=== PATIENT | female | born 1980 | race Caucasian/White ===

== ENCOUNTER 2025-02-15 13:53 | Inpatient (IN) | payer OTHER ==
[~2025-02-15] VITALS: Ht 172.7 cm; Wt 77.3 kg
--- NOTE | 2025-02-15 14:36 | Physician Documentation ---
History of Present Illness ~ Chief Complaint: Post-operative complication Stated Complaint: POST OP COMPLICATIONS OK to notify your PCP?: Yes Source: patient Mode of Arrival: POV Exam Limitations: no limitations HPI 44-year-old female who has been having increased fatigue and weakness and cold chills which started last night. She had a hernia repair surgery done at [place] 13 days ago and has to drains placed. The drain on the left side has been producing an abnormal color according to her. She was not discharged on any antibiotics. Medication Reconciliation Allergies: Coded Allergies: morphine (Verified Allergy, Unknown, ITCHINESS AND PT FEEL HOT, 02/15/25) Review of Systems All Other Systems at this time: Reviewed and Negative Physical Exam Vital Signs: RN Vital Signs have been reviewed: Yes, Temperature: 99.0, Source: Oral, Heart Rate: 102, Respiratory Rate: 18, BP: 123/63, Pulse Oximetry: 99, Weight: 77.270 Oxygen Flow Rate: 0 Pulse Oximetry Reflects: adequate oxygenation Physical Exam General: Alert, no distress. HEENT: No injection, moist mucous membranes. Neck: Full range of motion. Respiratory: No respiratory distress, equal chest rise and fall. Chest: No accessory muscle use. Cardiovascular: Regular rate and rhythm. Gastrointestinal: Nondistended. Bilateral drains from abdomen. Erythema at drain site on left side, Extremities: Normal range of motion, no deformity. Neurologic: Oriented x4. Psychiatric: Normal mood and affect. Skin: Normal color, warm and dry. Progress Results/Orders Results/Orders Orders - KATIE MALAVE PATIENT EDUCATOR Cbc/Diff (02/15/25 14:28) Culture Blood (02/15/25 14:28) Urinalysis, Cult If Indicated (02/15/25 14:28) Chest,Single View (02/15/25 14:28) Monitor (02/15/25 14:28) Oxygen (02/15/25 14:28) Saline Lock (02/15/25 14:28) Procalcitonin (02/15/25 14:28) BMP (02/15/25 14:28) Lacticsepsis (02/15/25 14:28) Vital Signs 02/15/25 14:22 Temp 99.0 Pulse 102 Resp 18 B/P (MAP) 123/63 Pulse Ox 99 O2 Flow Rate 0 Departure Referrals: NO PRIMARY CARE PROVIDER (PCP) Additional Comment Medical Screen Exam This patient recieved a medical screening examination. After reviewing the individual's medical complaints with presenting symptoms and performing an appropriate physical examination, it was determined that no immediate life- threatening emergency medical condition is present. This individual is also not a women having contractions. KATIE MALAVE [facility] Feb 15, 2025 14:36
--- NOTE | 2025-02-15 14:52 | RADIOLOGY REPORT ---
CHEST RADIOGRAPH Indication: RECENT SURGERY Technique: Single frontal view of the chest was obtained Comparison: None FINDINGS: Lines and Tubes: None Lungs: No focal consolidation. Pleura: No effusion. No pneumothorax. Cardiomediastinal contours: Unremarkable Bones: No acute osseous abnormality. IMPRESSION: No acute cardiopulmonary disease.
--- NOTE | 2025-02-15 15:06 | Physician Documentation ---
History of Present Illness General Chief Complaint: Post-operative complication Stated Complaint: POST OP COMPLICATIONS Time Seen by MD: 14:48 Source: patient Mode of Arrival: POV Exam Limitations: no limitations History of Present Illness Initial Comments The patient is a 44-year-old female from [place] who presents with postop wound infection. She underwent a sigmoid colectomy in 2020 after prolonged chronic diverticulitis. On 02/02/2025, 13 days ago, she underwent a surgical hernia repair at [place] and had bilateral drains placed. She came to [place] about a week ago on vacation. Last night beginning around 8:00 p.m. she experienced chills and pain at the site of the drains. She is slated to return to [place] tomorrow and scheduled for removal of the drains on February 19, back at [place]. Medication Reconciliation Allergies: Coded Allergies: morphine (Verified Allergy, Unknown, ITCHINESS AND PT FEEL HOT, 02/15/25) Scheduled Aripiprazole (Aripiprazole), 1 TAB PO DAILY, (Reported) Baclofen (Baclofen), 1 TAB PO DAILY, (Reported) Escitalopram Oxalate (Escitalopram Oxalate), 1 TAB PO DAILY, (Reported) Fexofenadine Hcl* (Ada*), 1 TAB PO BID, (Reported) Gabapentin (Gabapentin), 1 TAB PO TID, (Reported) Gabapentin (Gabapentin ER), 1 TAB PO DAILY, (Reported) Metoprolol Tartrate (Metoprolol Tartrate), 1 TAB PO BID, (Reported) Montelukast Sodium (Montelukast Sodium), 1 TAB PO DAILY, (Reported) Omeprazole (Prilosec), 1 CAP PO BID, (Reported) Pramipexole Di-Hcl (Pramipexole Dihydrochloride), 1 TAB PO HS, (Reported) Topiramate (Topiramate), 1 TAB PO DAILY, (Reported) Topiramate (Topamax), 1 TAB PO BID, (Reported) Scheduled PRN Hydrocodone Bit/Acetaminophen (Hydrocodon-Acetaminophen 5-325), 1 TAB PO Q4H PRN for pain, (Reported) Promethazine Hcl (Phenergan), 0.5 TAB PO DAILY PRN for nausea, (Reported) Trazodone HCl (Trazodone HCl), 4 TAB PO HS PRN for insomnia, (Reported) Review of Systems ROS Constitutional: Patient complains of chills and fatigue HEENT: Denies hearing loss, sinus pressure or visual changes. Respiratory: Denies cough, shortness of breath or wheezing. Cardiovascular: Denies chest pain, pain while walking (claudication), edema or palpitations. Gastrointestinal: Lower abdominal pain and pain at the site of the drains b ilaterally Genitourinary: Denies painful urination (dysuria), excessive amount of urine (polyuria) or urinary frequency. Metabolic/Endocrine: Denies cold intolerance, heat intolerance, excessive thirst (polydipsia) or excessive hunger (polyphagia). Neurological: Denies dizziness, extremity numbness, extremity weakness, headaches, seizures or tremors. Psychiatric: Denies anxiety or depression. Integumentary: Denies breast discharge, breast lump, hives, mole change(s), rash or skin lesion. Musculoskeletal: Denies back pain, joint pain, joint swelling or neck pain. Hematologic: Denies easily bleeding, easily bruises, lymphedema or issues with blood clots. Immunologic: Denies food allergies or seasonal allergies. Physical Exam Physical Exam Vital Signs: Temperature: 99.0, Source: Oral, Heart Rate: 102, Respiratory Rate: 18, BP: 123/63, Pulse Oximetry: 99, Weight: 77.270 Oxygen Flow Rate: 0 General Appearance Physical Exam Vitals and nursing note reviewed. Constitutional: General: Patient is awake, alert, oriented x 4 in no acute distress and well appearing. Speech is clear and lucid. Appearance: Normal appearance. Patient is not ill-appearing, toxic-appearing or diaphoretic. HENT: Head: Normocephalic and atraumatic. Mouth/Throat: Mouth: Mucous membranes are moist. Pharynx: Oropharynx is clear. Eyes: General: No scleral icterus. Extraocular Movements: Extraocular movements intact. Pupils: Pupils are equal, round, and reactive to light. Cardiovascular: Rate and Rhythm: Normal rate and regular rhythm. Heart sounds: No murmur heard. Pulmonary: Effort: No respiratory distress. Breath sounds: No wheezing, rhonchi or rales. Abdominal: General: There is no distension. Palpations: There is no fluid wave, hepatomegaly or mass. Tenderness: Urea bilateral lower abdominal drains with erythema at their entry points. The fluid accumulated within the drains appears reddish and cloudy. Musculoskeletal: General: No swelling or deformity. Skin: Coloration: Skin is not jaundiced. Findings: No erythema or rash. Neurological: Mental Status: Patient is alert. Progress Results/Orders Results/Orders Orders - FARNAZ MASTERS MD Ct Abdomen Pelvis (02/15/25 14:58) Hcg, Ur Ql (02/15/25 17:36) Ultrasound Pelvis W/Orwo Dplx (02/15/25 ) Completed Orders - FARNAZ MASTERS MD Ct Abdomen Pelvis (02/15/25 14:58) Normal Saline 1000ml (Sodium Chloride 10 (02/15/25 16:05) Vancomycin*Pharmacy To Dose* (Vancomycin (02/15/25 16:05) Piperacillin/Tazo 3.375gm/50ml (Zosyn 3. (02/16/25 00:00) Iohexol 300mg/Ml 100ml Inj. (Omnipaque-3 (02/15/25 16:52) Piperacillin/Tazo 3.375gm/50ml (Zosyn 3. (02/15/25 17:28) Ultrasound Pelvis W/Orwo Dplx (02/15/25 ) Vital Signs 02/15/25 02/15/25 02/15/25 02/15/25 14:22 14:55 17:41 19:22 Temp 99.0 98.9 Pulse 102 113 107 Resp 18 14 18 19 B/P (MAP) 123/63 110/70 (83) 114/62 (79) Pulse Ox 99 98 98 O2 Flow Rate 0 0 02/15/25 21:15 Temp 98.9 Pulse 99 Resp 18 B/P (MAP) 117/65 (82) Pulse Ox 98 Laboratory Tests Test 02/15/25 15:35 02/15/25 16:45 White Blood Count 15.7 H Red Blood Count 3.50 L Hemoglobin 9.7 L Hematocrit 29.7 L Mean Corpuscular Volume 84.9 Mean Corpuscular Hemoglobin 27.7 Mean Corpuscular Hemoglobin Concent 32.6 L Red Cell Distribution Width 15.4 H Platelet Count 384 Mean Platelet Volume 7.0 L Neutrophils (%) (Auto) 88.3 H Lymphocytes (%) (Auto) 7.2 L Monocytes (%) (Auto) 3.8 Eosinophils (%) (Auto) 0.3 Basophils (%) (Auto) 0.4 Neutrophils # (Auto) 13.9 H Lymphocytes # (Auto) 1.1 Monocytes # (Auto) 0.6 Eosinophils # (Auto) 0.0 Basophils # (Auto) 0.1 CBC Comment Sodium Level 138 Potassium Level 3.6 Chloride Level 105 Carbon Dioxide Level 25.1 Anion Gap 8 Blood Urea Nitrogen 6 L Creatinine 0.83 Estimated GFR/1.73 m2 74 BUN/Creatinine Ratio 7.2 L Glucose Level 98 Lactic Acid Level 0.9 Calcium Level 8.0 L Albumin 3.0 L Procalcitonin < 0.05 Chemistry Comments Urine Specimen Description Cln catch midstream Urine Color Yellow Urine Clarity Clear Urine pH 7.0 Urine Specific [place] <=1.005 Urine Protein Negative Urine Glucose (UA) Negative Urine Ketones Negative Urine Occult Blood Negative Urine Nitrite Negative Urine Bilirubin Negative Urine Urobilinogen 0.2 Urine Leukocyte Esterase Negative Urine Culture Indicated Not ind Volume Urine Centrifuged 10 ml Urine Comment Medical Decision Making Findings This 44-year-old lady presents with chills that began last night around 8:00 p.m. after having had a herniorrhaphy at [place] with bilateral drains placed. CT scan shows a 3 cm complex cyst in the right ovary with recommendation to obtain pelvic ultrasound, which I have ordered. [place] [id number]. I am transferring care S6 p.m. to Dr. Youngblood Departure Disposition: ADMITTED INPATIENT Admitted to Inpatient Unit: to hospitalist Impression: Primary Impression: Postoperative wound infection Condition: Stable Referrals: NO PRIMARY CARE PROVIDER (PCP) Signature Scribe Signature: . Attestation: FARNAZ SMILEY MD Feb 15, 2025 15:06
[2025-02-15 15:47] LABS: BASOPHILS # (AUTO) 0.1 X10'3 (0-0.2); BASOPHILS % (AUTO) 0.4 % (0-1); EOSINOPHILS % (AUTO) 0.3 % (0-6); HEMATOCRIT 29.7 % (35.0-45.0); HEMOGLOBIN 9.7 g/dl (12.0-16.0); LYMPHOCYTES # (AUTO) 1.1 X10'3 (1.1-4.8); LYMPHOCYTES % (AUTO) 7.2 % (21-51); MEAN CORPUSCULAR HEMOGLOBIN 27.7 PG (27.0-31.0); MEAN CORPUSCULAR HGB CONC 32.6 g/dL (33.0-36.5); MEAN CORPUSCULAR VOLUME 84.9 FL (78-98); MONOCYTES # (AUTO) 0.6 X10'3 (0-0.9); MONOCYTES % (AUTO) 3.8 % (2-12); NEUTROPHILS # (AUTO) 13.9 X10'3 (1.8-7.7); NEUTROPHILS % (AUTO) 88.3 % (42-75); PLATELET COUNT 384 X10'3 (140-440); RED CELL DISTRIBUTION WIDTH 15.4 % (11.5-14.5); WHITE BLOOD COUNT 15.7 X10'3 (4.5-11.0)
[2025-02-15 15:55] LABS: ANION GAP 8 (8-16); BLOOD UREA NITROGEN 6 MG/DL (7-18); BUN/CREATININE RATIO 7.2 (10.0-20.0); CHLORIDE 105 MMOL/L (99-107); CREATININE 0.83 MG/DL (0.40-0.90); GLUCOSE 98 MG/DL (70-104); POTASSIUM 3.6 MMOL/L (3.5-5.1); SODIUM 138 MMOL/L (135-145); TOTAL CARBON DIOXIDE 25.1 MMOL/L (24-32); eCRCL 86 ML/MIN; eGFR 74 ML/MIN
[2025-02-15] MEDS ORDERED: iohexol 300mg/ml 100ml inj. ONE (16:52)
[2025-02-15 16:54] LABS: BILIRUBIN,URINE NEGATIVE (Neg); CLARITY,URINE CLEAR (Clear); COLOR,URINE YELLOW (Yellow); GLUCOSE, URINE NEGATIVE (Neg); KETONES,URINE NEGATIVE (Neg); LEUKOCYTE ESTERASE ,URINE NEGATIVE (Neg); NITRITES, URINE NEGATIVE (Neg); OCCULT BLOOD,URINE NEGATIVE (Neg); PROTEIN,URINE NEGATIVE (Neg); UROBILINOGEN,URINE 0.2 E.U/dL (0.2-1.0)
[2025-02-15 17:00] LABS: UA COLLECTION TYPE CLN CATCH MIDSTREAM
[2025-02-15] MEDS: normal saline 1000ml 1,000 ML IV ONE (17:12)
--- NOTE | 2025-02-15 17:22 | RADIOLOGY REPORT ---
Indication: Post-op infection Technique: CT axial images of the abdomen and pelvis are obtained with intravenous contrast. Coronal and sagittal reformats were obtained. Radiation Dose Information: CTDI volume is 24.4 mGy. Dose-length product is 1181 mGy*cm Comparison: None FINDINGS: Lung bases demonstrate no pleural effusion. Adrenal m glands unremarkable. Splenic hypodense lesion measuring 8 mm. Pancreas unremarkable. Chol ecystectomy. The right hepatic dome is incompletely characterized on this examination. Subcentimeter hepatic hypodensities, too small to characterize statistically likely representing cysts. Hepatomegal y. Kidneys demonstrate no hydronephrosis. 1 cm left renal cyst. 1.3 cm right renal cyst. Other smaller bilateral renal cysts. Stomach is poorly distended. Small bowel loops are normal in caliber. Postsurgical changes of the sigmoid colon. Colonic diverticular disease. Normal appendix. The abdominal aorta is normal in caliber. Bladder partially distended. Complex right ovarian cystic lesion measuring 3.1 cm. Right abdominal approach drainage catheter which is terminating along the re ctus abdominus. There is a 2nd left abdominal approach drainage catheter terminating within the ante rior abdominal tissues. There is soft tissue edema and stranding. No loculated collection present. Bladder distended. No free pelvic fluid. No inguinal lymphadenopathy. [id number] thoracolumbar degenerative disc disease. Mild thoracolumbar dextrocurvature. IMPRESSION: Abdominal drainage catheters as described. There is anterior abdominal subcutaneous/soft tissue edema and stranding but no loculated collection identified. Cholecystectomy. Complex right ovarian cystic lesion measuring 3.1 cm. Recommend ultrasound pelvis Please note the right hepatic dome is not completely characterized on this examination. Splenic hypodense lesion measuring 8 mm, likely cyst. This can be further characterized on multiphas ic MRI abdomen with and without contrast in the nonemergent setting. Postsurgical changes of the sigmoid colon. Other findings as described
[2025-02-15] MEDS: VANCOmycin 1250MG/NS 250ml Bag 250 ML IV SCH (17:44)
[2025-02-15] MEDS: piperacillin/tazo 3.375gm/50ml 50 ML IV SCH (20:29)
--- NOTE | 2025-02-15 21:02 | RADIOLOGY REPORT ---
Procedure: US ULTRASOUND PELVIS W/ORWO DPLX [facility] Study Date and Requested Time: 02/15/2025 08:01 PM Study Description: US ULTRASOUND PELVIS W/ORWO DPLX History: Complex right ovarian cyst, requested by radiologist Comparison: CT abdomen and pelvis 02/15/2025 Technique: Multiple transabdominal and transvaginal high resolution zhao-scale images obtained of the uterus and adnexa with color Doppler for evaluation of adnexal blood flow and vascularity as indicat ed. Findings: Uterus measures 7.2 x 4.2 x 4.2 cm, with homogeneous echotexture. Endometrium within normal limits, m easuring 0.3 cm in thickness with smooth contour. Cervix within normal limits. Right ovary measures 3.8 x 2.8 x 3.3 cm with a 1.8 x 1.8 x 1.8 cm cyst /dominant follicle and 1.1 x 1 .2 x 1.4 cm cyst/ dominant follicle. Left ovary measures 2.9 x 2.9 x 2.5 cm cm. Normal ovarian color Doppler flow bilaterally. No evidence of free fluid in the cul-de-sac. Impression: 1.8 cm and 1.4 cm right ovarian cyst/dominant follicles. No additional significant findings are noted.
[2025-02-15] MEDS ORDERED: magnesium sulf-water 4G/100mL 100 ML IV PRN (23:50)
[2025-02-15] MEDS ORDERED: magnesium sulf-water 2g/50mL 50 ML IV PRN (23:50)
[2025-02-15] MEDS ORDERED: potassium Cl 20 mEq SR tablet PO PRN (23:50)
[2025-02-15] MEDS ORDERED: mag hydrox/Alum hydrox/simeth 30ml oral suspension PO PRN (23:50)
[2025-02-15] MEDS ORDERED: magnesium hydroxide 30ml (MOM) UD suspension PO PRN (23:50)
[2025-02-15] MEDS ORDERED: magnesium Cl slow-release 64mg tablet PO PRN (23:50)
[2025-02-15] MEDS ORDERED: potassium Cl 40MEQ/1/2NS 520ml 520 ML IV PRN (23:50)
[2025-02-15] MEDS ORDERED: acetaminophen 325mg tablet PO PRN (23:50)
[2025-02-16] MEDS ORDERED: piperacillin/tazo 3.375gm/50ml 50 ML IV SCH
--- NOTE | 2025-02-16 00:02 | HISTORY AND PHYSICAL-Residence ---
History & Physical Providers to CC Resident Creating Document: CIRILO TYLER, RES CC: MIRNA FUCHS MD ~ History of Present Illness Reason for Admit\Complaint: Heaviness in the drains post surgery History of Present Illness A 44-year-old female with past medical history bipolar, depression presented to the ED as she started feeling heaviness in her drains with the associated chills but no fever which is questionable as the patient did not have vomitings to check her temperature. Patient usually lives in [place] underwent hernia surgery with [place] on 02/02/2025 and came here for a vacation when she started experienced symptoms. Patient also complains of aching in her legs. 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 Krissy Smiley at [facility] for primarycare ROS ROS All other systems reviewed in full and negative except for the pertinent positives mentioned in the HPI Exam Vitals: Vital Signs Date Time Temp Pulse Resp B/P (MAP) Pulse Ox O2 Delivery O2 Flow Rate FiO2 02/15/25 19:22 98.9 107 19 114/62 (79) 98 02/15/25 17:41 0 General: General: Alert, awake, oriented, not in acute distress HEENT: PERRLA, no icterus, pallor, lymphadenopathy, carotid bruit Respiratory system: Bilateral vesicular breath sounds heard, no adventitious breath sounds CVS: S1-S2 heard, no murmurs/rubs/gallop GI: Tender with bilateral drains which is erythematous at the insertion site, a well-healing linear surgical scar from the surgery, Soft, , no organomegaly, no guarding/rigidity, bowel sounds present Neuro: No focal neurological deficits present Extremities: No edema cyanosis clubbing/deformities Skin: Warm and dry Diagnostic Data Last Recorded Lab Results: 02/15/25 1535 02/15/25 1535 Advance Care Planning Advanced Care plannin - 30 Minutes (I spent 20 minutes discussing various resuscitative measures and the patient decided to be full code) Additional Plan Assessment: A 44-year-old female with a past medical history of bipolar and depression presented to the ED with heaviness in her drains post surgery of her hernia repair on 02 February 2025. Patient is admitted for the evaluation management of surgical site infection after complicated hernia repair. Plan: Possible Surgical site skin infection Status post recent complicated hernia repair CT abdomen: Abdominal drainage catheters as described. There is anterior abdominal subcutaneous/soft tissue edema and stranding but no loculated collection identified. Splenic hypodense lesion measuring 8 mm, likely cyst. This can be further characterized on multiphasic MRI abdomen with and without contrast in the nonemergent setting. Elevated WBC count, normal procalcitonin Received one dose of IV vancomycin in the ED, continue IV vancomycin IV fluids at 100 cc/hour Pain meds and symptomatic management Consulted surgeon in a.m. Ovarian cyst/dominant follicles Pelvic ultrasound: 1.8 cm and 1.4 cm right ovarian cyst/dominant follicles. CT abdomen: Complex right ovarian cystic lesion measuring 3.1 cm. Recommend ultrasound pelvis Recommend outpatient follow up Chronic diverticulitis status post partial sigmoid colectomy Outpatient follow up Depression/bipolar Start home meds after reconciliation Follow up with echo, A1c, lipid panel Med rec pending Code status: Full code Diet: NPO DVT prophylaxis: Heparin 5000 subcu Disposition: Admit to Ortho, Surgeon consult in am Cirilo Tyler MD Internal Medicine, PGY 1 44 yr old lady with post op surgical infection started on vancomycin NPO IVF Surgery consulted Blood cultures sent We will follow Date of Service: Feb 15, 2025 Billing Provider: MIRNA FUCHS MD, SIVA, RES Feb 16, 2025 00:02 MIRNA FUCHS MD Feb 16, 2025 03:30
[2025-02-16] MEDS: PERFLUTREN PROTEIN-A MICROSPHR (Optison) 0.22 MG/ML 3ML VIAL IV ONE (00:39)
[2025-02-16] MEDS ORDERED: TRAZ-251 PO (01:29)
[2025-02-16] MEDS ORDERED: BACL10TA2 PO (01:29)
[2025-02-16] MEDS ORDERED: HYDR-3964 PO (01:29)
[2025-02-16] MEDS ORDERED: PRAM0.129 PO (01:29)
[2025-02-16] MEDS ORDERED: TOP100T PO (01:29)
[2025-02-16] MEDS ORDERED: OMEP40CA21 PO (01:29)
[2025-02-16] MEDS ORDERED: MONT-40 PO (01:29)
[2025-02-16] MEDS ORDERED: PROM12.512 PO (01:29)
[2025-02-16] MEDS ORDERED: METO25TA6 PO (01:29)
[2025-02-16] MEDS ORDERED: ESCI20TA39 PO (01:29)
[2025-02-16] MEDS ORDERED: TOPI-95 PO (01:29)
[2025-02-16] MEDS ORDERED: GABA300T28 PO (01:29)
[2025-02-16] MEDS ORDERED: GABA-1555 PO (01:29)
[2025-02-16] MEDS ORDERED: FEXO-353 PO (01:29)
[2025-02-16] MEDS ORDERED: ARIP20TA63 PO (01:30)
[2025-02-16] MEDS: normal saline 1000ml 1,000 ML IV SCH (01:47)
[2025-02-16 02:21] VITALS: BP 104/57; PULSE 102; RESP 16; TEMP 98.2; O2SAT 98
[2025-02-16] MEDS: oxyCODONE/APAP 10/325mg tablet PO ONE (02:26)
[2025-02-16 06:00] VITALS: BP 91/48; PULSE 84; RESP 14; TEMP 98.5; O2SAT 96
[2025-02-16 06:06] LABS: BASOPHILS % (AUTO) 0.3 % (0-1); EOSINOPHILS % (AUTO) 0.3 % (0-6); HEMOGLOBIN 8.7 g/dl (12.0-16.0); LYMPHOCYTES # (AUTO) 1.4 X10'3 (1.1-4.8); LYMPHOCYTES % (AUTO) 10.3 % (21-51); MEAN CORPUSCULAR HEMOGLOBIN 27.9 PG (27.0-31.0); MEAN PLATELET VOLUME 7.1 FL (7.4-10.4); MONOCYTES # (AUTO) 0.7 X10'3 (0-0.9); NEUTROPHILS # (AUTO) 11.3 X10'3 (1.8-7.7); NEUTROPHILS % (AUTO) 84.1 % (42-75); PLATELET COUNT 326 X10'3 (140-440); RED BLOOD COUNT 3.11 X10'6 (4.20-5.60); RED CELL DISTRIBUTION WIDTH 16.5 % (11.5-14.5); WHITE BLOOD COUNT 13.5 X10'3 (4.5-11.0)
[2025-02-16 06:37] LABS: ALBUMIN 2.4 G/DL (3.4-5.0); ANION GAP 10 (8-16); BLOOD UREA NITROGEN 5 MG/DL (7-18); BUN/CREATININE RATIO 8.1 (10.0-20.0); CALCIUM 7.6 MG/DL (8.5-10.1); CHLORIDE 110 MMOL/L (99-107); CHOL/HDL RATIO 2.8 (0.00-4.99); CHOLESTEROL 145 MG/DL (0-200); CREATININE 0.62 MG/DL (0.40-0.90); GLUCOSE 88 MG/DL (70-104); HDL CHOLESTEROL 51 MG/DL (35-60); LDL CHOLESTEROL 80 MG/DL (50-100); POTASSIUM 3.3 MMOL/L (3.5-5.1); SODIUM 141 MMOL/L (135-145); TOTAL CARBON DIOXIDE 20.8 MMOL/L (24-32); TRIGLYCERIDES 44 MG/DL (20-135); eCRCL 116 ML/MIN; eGFR > 90 ML/MIN
[2025-02-16 07:00] VITALS: BP 100/55; PULSE 92
[2025-02-16 08:00] VITALS: RESP 14; O2SAT 96
[2025-02-16 10:00] VITALS: BP 110/57; PULSE 97; RESP 15; TEMP 98.6; O2SAT 100
[2025-02-16] MEDS: ondansetron/PF 4mg/2ml inj IV PRN (10:06)
[2025-02-16 10:20] VITALS: RESP 16
[2025-02-16] MEDS: potassium Cl 20 mEq SR tablet PO PRN (10:20)
[2025-02-16] MEDS: HYDROcodone/acetaminophen 5mg/325mg tablet PO PRN (10:20)
[2025-02-16] MEDS: docusate sod 100mg capsule PO SCH (10:21)
[2025-02-16] MEDS: K and/or MAG REPLACEMENT MC SCH (10:21)
[2025-02-16] MEDS: heparin, porcine 5000 units/ml vial SQ SCH (10:23)
--- NOTE | 2025-02-16 14:55 | PROGRESS NOTE- Residence ---
Progress Note - Resident Providers to CC Resident Creating Document: JUAN BROWNING, RES ~ Antibiotic Timeout Antibiotic Ordered?: Yes Subjective The patient has been evaluated at the bedside. The patient currently denies any new symptoms, fever sensation, chills or pain. Objective Vital Signs Date Time Temp Pulse Resp B/P (MAP) Pulse Ox O2 Delivery O2 Flow Rate FiO2 02/16/25 10:20 16 02/16/25 07:00 92 100/55 (70) 02/16/25 06:00 98.5 96 Room Air 02/15/25 17:41 0 Physical exam: General: Well alert, well oriented, not confused, not agitated, not in acute distress, well cooperated during the physical. HEENT: Conjunctive are pink, sclerae clear, no icterus, pupil is equal in both sides, reactive to light, no ear discharge, no pharyngeal erythema or an edema. Neck: Supple, no JVD, no lymphadenopathy and thyromegaly. Chest: Equal air entry on both lungs, no additional sounds no rhonchi no wheezing at the moment. Cardiovascular: S1-S2 regular sinus rhythm and, regular rate, no gallops, no rubs, no murmurs Abdomen: No visible peristalsis, Bowel sounds present on auscultation, soft, nontender, no guarding, no rigidity, presence of two drains in the abdomen, one in the left side and one in the right side of the level of the lower abdomen. Mild redness around range. Extremities: No obvious deformities, no pitting edema bilaterally, capillary refill intact, peripheral pulsations are intact on both sides Central Nervous System: No focal neurological deficits, no motor or sensory weakness in all 4 extremities, could move all 4 extremities, 2+ deep tendon reflexes, negative Babinski. Musculoskeletal: No joint swelling, deformities, inflammations, and no scoliosis and back tenderness Skin: Warm and dry. Result Diagram: 02/16/25 0514 02/16/25513 Assessment Assessment A 44-year-old female with a past medical history of bipolar and depression presented to the ED with heaviness in her drains post surgery of her hernia repair on 02 February 2025. Patient is admitted for the evaluation management of surgical site infection after complicated hernia repair. Plan Plan Possible Surgical site skin infection Status post recent complicated hernia repair CT abdomen: Abdominal drainage catheters as described. There is anterior abdominal subcutaneous/soft tissue edema and stranding but no loculated collection identified. Splenic hypodense lesion measuring 8 mm, likely cyst. This can be further characterized on multiphasic MRI abdomen with and without contrast in the nonemergent setting. Elevated WBC count, normal procalcitonin Received one dose of IV vancomycin in the ED, continue IV vancomycin IV fluids at 100 cc/hour Pain meds and symptomatic management 02/16/2025: The patient was started on vancomycin and Zosyn during the admission. General surgeon, Dr. Trinh consulted, awaiting recommendations. The patient showing concerned because of transportation to [place]. As per patient she just got her surgery on 02/02/[address] Cross in [place], she has a an appointment follow-up in February 19, 2025. We will continue antibiotics based on vancomycin and Zosyn. Ovarian cyst/dominant follicles Pelvic ultrasound: 1.8 cm and 1.4 cm right ovarian cyst/dominant follicles. CT abdomen: Complex right ovarian cystic lesion measuring 3.1 cm. Recommend ultrasound pelvis Recommend outpatient follow up Chronic diverticulitis status post partial sigmoid colectomy Outpatient follow up Depression/bipolar Start home meds after reconciliation Code status: Full code DVT prophylaxis: Heparin Analgesia/sedation: [place] Line/tube: PIV GI prophylaxis: None Nutrition: NPO. PT: Ordered Prognosis: Guarded Disposition: Awaiting for surgery recommendations. We will continue medical treatment. Juan Donis Internal Medicine Resident [facility] Date of Service: Feb 16, 2025 Billing Provider: ANILA GUERIN MD,JUAN MACE, RES Feb 16, 2025 14:55
--- NOTE | 2025-02-16 17:12 | DISCHARGE SUMMARY-Residence ---
Discharge Summary Providers to Resident Creating Document: SONIA BROWNING, RES ~ Discharge Summary Admission Diagnosis: SURGICAL SITE INFECTION Hospital Course DATE OF ADMISSION: 02/15/2025 DATE OF DISCHARGE: 02/16/2025 PATIENT LEFT AGAINST MEDICAL ADVICE Discharge Diagnosis\Comment: Possible Surgical site skin infection Status post recent complicated hernia repair Ovarian cyst/dominant follicles Chronic diverticulitis status post partial sigmoid colectomy Depression/bipolar Operations\Procedures: None Consultants: Surgeon, Dr. Trinh Complications: None Condition on DC: Stable Discharge Summary: HPI: A 44-year-old female with past medical history bipolar, depression presented to the ED as she started feeling heaviness in her drains with the associated chills but no fever which is questionable as the patient did not have vomitings to check her temperature. Patient usually lives in [place] underwent hernia surgery with [place] on 02/02/2025 and came here for a vacation when she started experienced symptoms. Patient also complains of aching in her legs. Hospital course: 44-year-old female patient came to the hospital with chief complaint of heaviness in her drains and associated chills. The patient was started on IV antibiotics based on vancomycin and Zosyn due to the suspicion of infection at the level of surgical area. WBC initially trending down. Upon the next day the patient was evaluated at the bedside, denies pain, secretions, fever sensation. Surgeon Dr. Navarro who kindly accepted to evaluate the patient. Before surgeon evaluated the patient, the patient states that she needs to go back to son has a because she has a ride now. We recommended the patient to undergo evaluation by surgery, despite risks explained to the patient she decided to leave AMA. The patient was completely oriented to person, place and time. Discharge course: .PATIENT LEFT AGAINST MEDICAL ADVICE *Problems/Diagnosis: (1) Status post hernia repair Status: Acute (2) Skin infection Status: Acute Total Time Spent on D/C: > 30 Minutes Date of Service: Feb 16, 2025 Billing Provider: ANILA GUERIN MD Common Visit Codes: 32148-EDB/OBS DISCH DAY <30MIN SONIA BROWNING, RES Feb 16, 2025 17:11 ANILA GUERIN MD Feb 16, 2025 17:34
--- NOTE | 2025-02-16 17:54 | CARDIOLOGY REPORT ---
APPROVED REPORT EXAM: Comprehensive 2D, Doppler, and color-flow Echocardiogram. Patient Location: [facility] A Rhythm: SINUS Indications CONGESTIVE HEART FAILURE Ambulatory Technologist: NONE Previous echo: NONE 2D Dimensions RVDd 3.0 cm IVSd 0.9 (0.7-1.1cm) LVDd 4.8 cm PWd 0.8 (0.7-1.1cm) IVSs 1.0 (0.8-1.2cm) LVDs 3.0 (2.5-4.0cm) PWs 1.0 (0.8-1.2cm) LVOT Diameter 1.96 (1.8-2.4cm) LVEF(%) 67.4 (>50%) FS (%) 37.5 % SV 73.9 ml CO 7.5 L/min M-Mode Dimensions Left Atrium(MM) 3.40 (2.5-4.0cm) Aortic Root 2.77 (2.2-3.7cm) Aortic Cusp Exc 1.93 (1.5-2.0cm) Aortic Valve AoV Peak Dimitris. 141.0 cm/s AoV VTI 29.5 cm AO Peak GR. 7.9 mmHg AO Mean GR. 4 mmHg LVOT VTI 24.53 cm LVOT Peak Dimitris. 112.5 cm/s ANSELMO(VTI)/BSA 2.50 cm2/m2 ANSELMO (VTI) 2.50 cm2 Mitral Valve MV E Velocity 115.5 cm/s MV Peak Gr. 9 mmHg MV DECEL TIME 186 ms MV A Velocity 128.1 cm/s MV PHT 54 ms E/A Ratio 0.9 MVA (PHT) 4.07 cm2 MV QWzt771.4 cm/s LEFT VENTRICLE Normal LV size and wall thickness. Overall systolic function is normal. LVEF is 65-70%. RIGHT VENTRICLE RV is normal size and function. ATRIA The left atrium size is normal. AORTIC VALVE Trileaflet AV appears mildly sclerotic without stenosis. No insufficiency. MITRAL VALVE Mild MV annular calcification without stenosis. Trace regurgitation. TRICUSPID VALVE TV appears structurally normal with trace regurgitation. PULMONIC VALVE Grossly normal PV without stenosis, no insufficiency. GREAT VESSELS The aortic root is normal in size. IVC is normal appears normal in size and collapses greater than 50 % with inspiration. PERICARDIUM Normal pericardium. No effusion. Other Information Study Quality: Adequate. Pt in suprine position due to drains on her left side. Conclusion Normal LV size and wall thickness. Overall systolic function is normal. LVEF is 65-70%. RV is normal size and function. The left atrium size is normal. Trileaflet AV appears mildly sclerotic without stenosis. No insufficiency. Mild MV annular calcification without stenosis. Trace regurgitation. TV appears structurally normal with trace regurgitation. Normal pericardium. No effusion.
[2025-02-17] MEDS ORDERED: VANCOMYCIN LEVEL IV ONE (04:30)
== END 2025-02-16 15:05 | disposition left against medical advice (07) | DRG 721 ==
LOC: ER 13:54 → ED HOLD 23:14 → EDBEDREQ 02-16 00:45 → ORTHO 4S 02-16 02:00
PROVIDERS: ADMIT Internal Medicine; ATTEND Internal Medicine
PROC: BW211ZZ Computerized Tomography (CT Scan) of Abdomen and Pelvis using Low Osmolar Contrast (ICD-10-PCS; principal; 2025-02-15)
DX: T81.41XA Infection following a procedure, superficial incisional surgical site, initial encounter (principal); F17.210 Nicotine dependence, cigarettes, uncomplicated; F31.9 Bipolar disorder, unspecified; Z53.29 Procedure and treatment not carried out because of patient's decision for other reasons; Y83.8 Other surgical procedures as the cause of abnormal reaction of the patient, or of later complication, without mention of misadventure at the time of the procedure; Y92.89 Other specified places as the place of occurrence of the external cause; N83.201 Unspecified ovarian cyst, right side
CPT/HCPCS: 36415; 71045; 74177; 76856; 80048; 80061; 81003; 83036; 83605; 83735; 84145; 85025; 87040; 87081; 93306; 93976; 96361; 96365; 99285; G0378; J1644; J2405; J2543; J3370; J7030; J7050; Q9967